=== PATIENT | female | born 1930 | race Caucasian/White ===

== ENCOUNTER 2017-05-25 13:43 | Inpatient (IN) | payer MEDICARE, OTHER ==
[~2017-05-25] VITALS: Ht 157.4 cm; Wt 67.1 kg
[~2017-05-25 13:43] MED LIST: ASPIRIN81 M1; B COMPLEX1 CAP; BACTRIM DS 8001 TA1 PO; BIOTIN1 MG; CALCIUM600 M2; DAILY VITAMIN; EPA1000 MG; FOSAMAX70 MG/75 M; IRON50 MG; LASIX40 MG; LEVOFLOXACIN500 MG PO; OCUVITE1 TA1; PYRIDIUM200 M1 PO; [UNRECOGNIZED DRUG - OTHER] PO
[2017-05-25 13:48] VITALS: BP 153/79
[2017-05-25 14:14] LABS: BASO % 0.5 % (0.0-1.0); EOS # 0.2 10*3/uL (0.0-0.4); EOS % 2.1 % (1.0-4.0); HEMATOCRIT 45.6 % (37.0-47.0); HEMOGLOBIN 14.9 g/dl (12.0-16.0); LYMPH # 1.8 10*3/uL (1.3-4.4); LYMPH % 23.7 % (27.0-41.0); MEAN CELL VOLUME 97.9 fl (81.0-99.0); MEAN CORPUSCULAR HGB CONC 32.7 g/dl (33.0-37.0); MEAN PLATELET VOLUME 10.5 fl (9.6-12.3); MONO # 0.7 10*3/uL (0.1-1.0); MONO % 9.3 % (3.0-9.0); NEUT # 4.9 10*3/uL (2.3-7.9); NEUT % 64.3 % (47.0-73.0); PLATELET COUNT AUTOMATED 141 10*3/uL (130-400); RED BLOOD COUNT 4.66 10*6/uL (4.10-5.10); RED CELL DISTRI WIDTH 12.9 % (0-14.5); WHITE BLOOD COUNT 7.6 10*3/uL (4.8-10.8)
[2017-05-25 14:28] LABS: ALBUMIN 3.5 gm/dl (3.1-4.5); ALKALINE PHOSPHATASE 81 U/L (45-117); BUN 21 mg/dl (7-24); CHLORIDE 110 mmol/L (98-107); CREATININE 0.77 mg/dL (0.55-1.02); LIPASE 128 U/L (73-393); POTASSIUM 3.9 mmol/L (3.5-5.1); SGOT/AST 28 IU/L (3-35); SGPT/ALT 19 U/L (12-78); SODIUM 143 mmol/L (136-145); TOTAL PROTEIN 7.5 gm/dL (6.4-8.2)
[2017-05-25 14:36] LABS: BILIRUBIN 1+ (NEGATIVE); BLOOD 3+ (NEGATIVE); CLARITY CLOUDY (CLEAR); COLOR YELLOW (YELLOW); GLUCOSE NEGATIVE (NEGATIVE); KETONE TRACE (NEGATIVE); LEUKO ESTERASE 2+ (NEGATIVE); NITRITE NEGATIVE (NEGATIVE); PH 8.5 (5.0-9.0); SPECIFIC GRAVITY 1.015 (1.005-1.030)
[2017-05-25 14:43] LABS: BACTERIA 2+; RBC TNTC rbc/hpf (0-2); WBC TNTC wbc/hpf (0-5)
[2017-05-25] MEDS ORDERED: LATANOPROST2.5 ML OP (14:47)
[2017-05-25 16:09] VITALS: BP 148/80
--- NOTE | 2017-05-25 16:44 | NUR ---
A 86, admitted to 5E, under the services of HERMILO Philip DO with a diagnosis of UTI, SEPSIS. Chief complaint is BLOOD IN URINE FOR 2 DAYS. URINARY FREQUENCY AND DIFFUSE LOW ABDOMEN PAIN FOR 3 WEEKS. Patient arrived via stretcher from ER. Monitor applied. Initial assessment completed. Vital signs taken and recorded. HERMILO PHILIP DO notified of admission to the unit. Orders received. See assessment for past medical history, medications and allergies. Patient and/or family oriented to unit. [facility] visitation policy reviewed. Clothing/patient valuable form completed. BOB HENSON
[2017-05-25 17:00] VITALS: BP 148/80
--- NOTE | 2017-05-25 17:00 | NUR ---
DURING ADMISSION, PT HAD TO USE RESTROOM TWICE. EACH TIME PRODUCED A SMALL AMOUNT OF URINE WITH MINIMAL BLOOD. NO CLOTS NOTED. PT STATES THE PYRIDIUM REALLY HELPED AND HAS BEEN "BURNING" LESS AND LESS.
--- NOTE | 2017-05-25 17:35 | NUR ---
NOTIFIED DR. BARILLAS OF NEEDED SIGNATURE FOR DNR-CCA PAPERWORK. WILL BE REVIEWED AND SIGN TOMORROW PER DR. BARILLAS.
--- NOTE | 2017-05-25 18:42 | NUR ---
PT IN BED, VISITING WITH FAMILY AND EATING. NO COMPLAINTS AT THIS TIME.
[2017-05-25 20:00] VITALS: BP 134/72
--- NOTE | 2017-05-25 20:30 | NUR ---
PT. ALERT AND ORIENTED X 3 AT THIS TIME, PT. IN BED WITH DAUGHTER AT BEDSIDE. LUNGS DIMINISHED, PT. DENIES SOB ON RA. S1S2, PPP, NO CP, EDEMA TO LE L>R.
--- NOTE | 2017-05-25 20:58 | NUR ---
@[address] NORWOOD REGARDING PTS. STATED EPISODES OF DIARRHEA. PER DR. NORWOOD, THIS NURSE IS TO ORDER A C-DIFF CULTURE FOR THE PT.
[2017-05-26] VITALS: BP 136/83
[2017-05-26 06:39] LABS: BASO % 0.5 % (0.0-1.0); EOS # 0.2 10*3/uL (0.0-0.4); EOS % 3.1 % (1.0-4.0); HEMATOCRIT 40.9 % (37.0-47.0); HEMOGLOBIN 13.2 g/dl (12.0-16.0); LYMPH # 1.2 10*3/uL (1.3-4.4); LYMPH % 20.8 % (27.0-41.0); MEAN CELL VOLUME 98.6 fl (81.0-99.0); MEAN CORPUSCULAR HGB 31.8 pg (27.0-31.0); MEAN CORPUSCULAR HGB CONC 32.3 g/dl (33.0-37.0); MEAN PLATELET VOLUME 10.8 fl (9.6-12.3); MONO # 0.6 10*3/uL (0.1-1.0); MONO % 10.8 % (3.0-9.0); NEUT # 3.6 10*3/uL (2.3-7.9); NEUT % 64.6 % (47.0-73.0); PLATELET COUNT AUTOMATED 118 10*3/uL (130-400); RED BLOOD COUNT 4.15 10*6/uL (4.10-5.10); RED CELL DISTRI WIDTH 12.9 % (0-14.5); WHITE BLOOD COUNT 5.6 10*3/uL (4.8-10.8)
[2017-05-26 07:11] LABS: ACT PARTIAL THROMBO TIME 22.3 SECONDS (20.8-31.5)
[2017-05-26 07:16] LABS: ALBUMIN 3.1 gm/dl (3.1-4.5); BUN 20 mg/dl (7-24); CHLORIDE 109 mmol/L (98-107); POTASSIUM 3.7 mmol/L (3.5-5.1); SGOT/AST 22 IU/L (3-35); SGPT/ALT 19 U/L (12-78); SODIUM 143 mmol/L (136-145)
[2017-05-26 07:25] LABS: ALKALINE PHOSPHATASE 68 U/L (45-117); CHOLESTEROL 157 mg/dL (<200); CREATININE 0.76 mg/dL (0.55-1.02); HDL CHOLESTEROL 51 mg/dl (40-60); LDL CHOLESTEROL 92 mg/dL (9-159); PHOSPHOROUS 2.7 mg/dL (2.5-4.9); TOTAL PROTEIN 6.8 gm/dL (6.4-8.2); TRIGLYCERIDES 70 mg/dl (<150); VLDL CHOLESTEROL 14 mg/dL (6-40)
[2017-05-26 07:39] LABS: VITAMIN D, 25-HYDROXY 33.2 ng/mL (30-100)
[2017-05-26 08:00] VITALS: BP 141/73
[2017-05-26] MEDS ORDERED: DOXYCYCLINE100 M3 PO (09:58)
--- NOTE | 2017-05-26 11:53 | NUR ---
Discharge instructions reviewed with patient/family. Patient receptive and verbalizes understanding. Follow-up care arranged. Written instructions given to patient/family. ESTEPHANIA PRICE
== END 2017-05-26 11:54 | disposition home or self-care (01) | DRG 872 ==
LOC: ED 13:43 → EDHOLD 15:42 → 5E 15:49
PROVIDERS: Family Medicine; Student in an Organized Health Care Education/Training Program; ADMIT Internal Medicine
DX: A41.9 Sepsis, unspecified organism (principal); E87.8 Other disorders of electrolyte and fluid balance, not elsewhere classified; N39.0 Urinary tract infection, site not specified; R31.9 Hematuria, unspecified; K31.89 Other diseases of stomach and duodenum; R73.9 Hyperglycemia, unspecified; K80.20 Calculus of gallbladder without cholecystitis without obstruction; K57.90 Diverticulosis of intestine, part unspecified, without perforation or abscess without bleeding; K44.9 Diaphragmatic hernia without obstruction or gangrene; Z51.5 Encounter for palliative care; Z66 Do not resuscitate; H40.9 Unspecified glaucoma; Z90.710 Acquired absence of both cervix and uterus; Z98.51 Tubal ligation status; Z80.0 Family history of malignant neoplasm of digestive organs; Z84.89 Family history of other specified conditions; Z91.041 Radiographic dye allergy status; Z91.048 Other nonmedicinal substance allergy status; Z88.8 Allergy status to other drugs, medicaments and biological substances; Z79.899 Other long term (current) drug therapy; Z79.82 Long term (current) use of aspirin

== ENCOUNTER 2018-07-12 15:23 | Emergency (ER) | payer MEDICARE, OTHER ==
[~2018-07-12] VITALS: Ht 157.4 cm; Wt 60.8 kg
[~2018-07-12 15:23] MED LIST changes: +DOXYCYCLINE100 M3 PO; +LATANOPROST2.5 ML OP
[2018-07-12 15:39] LABS: BILIRUBIN 2+ (NEGATIVE); BLOOD 2+ (NEGATIVE); CLARITY CLOUDY (CLEAR); GLUCOSE NEGATIVE (NEGATIVE); KETONE NEGATIVE (NEGATIVE); LEUKO ESTERASE 3+ (NEGATIVE); NITRITE NEGATIVE (NEGATIVE); PH 6.5 (5.0-9.0); UROBILINOGEN 0.2 E.U./dl (0.2-1.0)
[2018-07-12 15:43] LABS: COLOR GREEN (YELLOW)
[2018-07-12 15:46] LABS: BACTERIA 2+; EPITHELIAL CELLS E0-2; WBC TNTC wbc/hpf (0-5)
[2018-07-12 15:47] LABS: MUCOUS TRACE
[2018-07-12] MEDS ORDERED: LEVOFLOXACIN250 M2 PO (18:54)
== END 2018-07-12 19:15 | disposition home or self-care (01) ==
LOC: ED 15:23
PROVIDERS: Emergency Medicine
DX: R60.0 Localized edema (principal); N39.0 Urinary tract infection, site not specified; Z86.711 Personal history of pulmonary embolism; Z91.041 Radiographic dye allergy status; Z91.048 Other nonmedicinal substance allergy status; Z88.1 Allergy status to other antibiotic agents; Z88.8 Allergy status to other drugs, medicaments and biological substances; Z79.2 Long term (current) use of antibiotics; Z79.899 Other long term (current) drug therapy; Z90.710 Acquired absence of both cervix and uterus

== ENCOUNTER 2018-07-18 15:44 | Emergency (ER) | payer MEDICARE, OTHER ==
[~2018-07-18] VITALS: Wt 63.5 kg
[~2018-07-18 15:44] MED LIST changes: +LEVOFLOXACIN250 M2 PO
[2018-07-18 15:45] VITALS: BP 137/72
[2018-07-18 16:49] LABS: BASO % 0.6 % (0.0-1.0); EOS # 0.2 10*3/uL (0.0-0.4); EOS % 4.8 % (1.0-4.0); HEMATOCRIT 41.7 % (37.0-47.0); HEMOGLOBIN 13.4 g/dl (12.0-16.0); LYMPH # 1.2 10*3/uL (1.3-4.4); LYMPH % 25.3 % (27.0-41.0); MEAN CELL VOLUME 99.8 fl (81.0-99.0); MEAN CORPUSCULAR HGB 32.1 pg (27.0-31.0); MEAN CORPUSCULAR HGB CONC 32.1 g/dl (33.0-37.0); MEAN PLATELET VOLUME 10.1 fl (9.6-12.3); MONO # 0.6 10*3/uL (0.1-1.0); MONO % 12.7 % (3.0-9.0); NEUT # 2.7 10*3/uL (2.3-7.9); NEUT % 56.4 % (47.0-73.0); PLATELET COUNT AUTOMATED 150 10*3/uL (130-400); RED BLOOD COUNT 4.18 10*6/uL (4.10-5.10); RED CELL DISTRI WIDTH 13.2 % (0-14.5); WHITE BLOOD COUNT 4.8 10*3/uL (4.8-10.8)
[2018-07-18 17:04] LABS: ALBUMIN 3.1 gm/dl (3.1-4.5); ALKALINE PHOSPHATASE 91 U/L (45-117); BUN 13 mg/dl (7-24); CHLORIDE 104 mmol/L (98-107); CREATININE 1.01 mg/dL (0.55-1.02); POTASSIUM 3.9 mmol/L (3.5-5.1); SGOT/AST 27 IU/L (3-35); SGPT/ALT 20 U/L (12-78); SODIUM 140 mmol/L (136-145); TOTAL PROTEIN 7.2 gm/dL (6.4-8.2)
[2018-07-18] MEDS ORDERED: CEPHALEXIN500 M1 PO (19:09)
[2018-07-18] MEDS ORDERED: PYRIDIUM100 MG PO (19:09)
== END 2018-07-18 19:19 | disposition home or self-care (01) ==
LOC: ED 15:44
PROVIDERS: Nurse Practitioner Family
DX: L03.116 Cellulitis of left lower limb (principal); Z86.711 Personal history of pulmonary embolism; Z91.041 Radiographic dye allergy status; Z91.048 Other nonmedicinal substance allergy status; Z88.1 Allergy status to other antibiotic agents; Z88.8 Allergy status to other drugs, medicaments and biological substances; Z79.2 Long term (current) use of antibiotics; Z79.899 Other long term (current) drug therapy; Z90.710 Acquired absence of both cervix and uterus

== ENCOUNTER 2018-08-30 11:19 | Inpatient (IN) | payer MEDICARE, OTHER ==
[~2018-08-30] VITALS: Ht 154.9 cm; Wt 57.7 kg
--- NOTE | ~2018-08-30 | EKG ---
[place], [place] ELECTROCARDIOGRAM REPORT NAME: SAVI MONTES UNIT #: [id number] ROOM: 512 DOCTOR: TYRONE DRAFT REPORT BIRTHDATE: [birth year] [facility] Test Date: 2018-08-30 Test Time: 15:57:32 Pat Name: SAVI MONTES Department: Room: 512 1 Gender: F Citrus Picker: EKG.ND : 1930 Requested By: CONCEPCION ARAIZA Order Number: [id number] Reading MD: Higinio Montana MD Measurements Intervals [place] Rate: 54 P: 36 MT: 146 QRS: 27 QRSD: 82 T: 59 QT: 424 QTc: 402 Interpretive Statements Sinus rhythm Electronically Signed On 09-03-2018 15:35:53 PST by Higinio Montana MD CM:EKGRPT:ELECTROCARDIOGRAM REPORT [id number] CONCEPCION HANSEN DRAFT REPORT CONCEPCION ARAIZA
[~2018-08-30 11:19] MED LIST changes: +CEPHALEXIN500 M1 PO; -LATANOPROST2.5 ML OP; +LATANOPROST2.5 ML OU; +PYRIDIUM100 MG PO
[2018-08-30 11:24] VITALS: BP 147/80
[2018-08-30 12:18] LABS: BASO # 0.1 10*3/uL (0.0-0.1); BASO % 0.8 % (0.0-1.0); EOS # 0.3 10*3/uL (0.0-0.4); EOS % 3.6 % (1.0-4.0); HEMATOCRIT 43.9 % (37.0-47.0); HEMOGLOBIN 14.5 g/dl (12.0-16.0); LYMPH % 13.8 % (27.0-41.0); MEAN CELL VOLUME 97.1 fl (81.0-99.0); MEAN CORPUSCULAR HGB 32.1 pg (27.0-31.0); MEAN PLATELET VOLUME 10.7 fl (9.6-12.3); MONO # 0.6 10*3/uL (0.1-1.0); MONO % 7.8 % (3.0-9.0); NEUT # 5.6 10*3/uL (2.3-7.9); NEUT % 73.7 % (47.0-73.0); PLATELET COUNT AUTOMATED 175 10*3/uL (130-400); RED BLOOD COUNT 4.52 10*6/uL (4.10-5.10); RED CELL DISTRI WIDTH 13.2 % (0-14.5); WHITE BLOOD COUNT 7.5 10*3/uL (4.8-10.8)
[2018-08-30 12:33] LABS: ALBUMIN 3.1 gm/dl (3.1-4.5); ALKALINE PHOSPHATASE 81 U/L (45-117); BUN 17 mg/dl (7-24); CHLORIDE 107 mmol/L (98-107); CREATININE 0.73 mg/dL (0.55-1.02); POTASSIUM 3.8 mmol/L (3.5-5.1); SGOT/AST 14 IU/L (3-35); SGPT/ALT 13 U/L (12-78); SODIUM 138 mmol/L (136-145); TOTAL PROTEIN 7.5 gm/dL (6.4-8.2)
[2018-08-30 12:58] LABS: BILIRUBIN NEGATIVE (NEGATIVE); BLOOD 2+ (NEGATIVE); CLARITY CLOUDY (CLEAR); COLOR YELLOW (YELLOW); GLUCOSE NEGATIVE (NEGATIVE); KETONE TRACE (NEGATIVE); LEUKO ESTERASE 3+ (NEGATIVE); NITRITE NEGATIVE (NEGATIVE); SPECIFIC GRAVITY 1.015 (1.005-1.030)
[2018-08-30 13:05] LABS: BACTERIA 3+; RBC 31-40 rbc/hpf (0-2); WBC TNTC wbc/hpf (0-5)
--- NOTE | 2018-08-30 13:31 | NUR ---
pt without "much relief" from the meds,family @ bedside,call light within reach and safety precautions intact.
[2018-08-30 13:42] VITALS: BP 138/80
[2018-08-30] MEDS ORDERED: DITROPAN XL5 MG PO (13:52)
[2018-08-30 14:21] VITALS: BP 132/58
--- NOTE | 2018-08-30 14:24 | NUR ---
NANO FIGUEROA NOTIFIED THAT PT/FAMILY REQUESTING A PRIVATE ROOM AND BED NUMBER TO BE CHANGED PRIOR TO ADMISSION.
[2018-08-30 15:05] VITALS: BP 160/58
--- NOTE | 2018-08-30 15:05 | NUR ---
Time: 1504 A 87 year old FEMALE admitted to 5E under services of NOMAN WINTER DO. Pt. arrived via bed from ER. Chief complaint: BACK PAIN. NANO MATHEWS
--- NOTE | 2018-08-30 15:50 | NUR ---
/ IN TO SEE PATIENT AT BEDSIDE. INFORMED THAT MEDICATIONS ARE VERIFIED BY PATIENT/FAMILY.
[2018-08-30 16:00] VITALS: BP 132/58
--- NOTE | 2018-08-30 16:34 | NUR ---
TRANSPORT TO P/U PATIENT FOR CT SCAN.
--- NOTE | 2018-08-30 17:00 | NUR ---
PER OK TO HOLD 1800 DOSE OF IV LASIX D/T PATIENT ALREADY HAVING 1X DOSE THIS EVENING.
--- NOTE | 2018-08-30 17:09 | NUR ---
PATIENT MEDICATED WITH IV MORPHINE FOR 10/10 PAINT TO BACK. WILL MONITOR.
--- NOTE | 2018-08-30 17:56 | NUR ---
INFORMED THAT MORPHINE IV HAS NOT BEEN EFFECTIVE FOR BACK PAIN AND PATIENT HAS INCREASE PAIN TO LLQ REGION WITH TENDERNESS TO TOUCH. STATES HE WILL COME UP AND SEE.
--- NOTE | 2018-08-30 18:36 | NUR ---
PATIENT MEDICATED WITH NORCO FOR C/O ABDOMINAL PAIN 04/23. WILL MONITOR
[2018-08-30 20:00] VITALS: BP 115/60
[2018-08-31] VITALS (8 sets, daily range): BP systolic 93–128; BP diastolic 38–66
[2018-08-31 06:06] LABS: BASO # 0.1 10*3/uL (0.0-0.1); BASO % 0.7 % (0.0-1.0); EOS # 0.4 10*3/uL (0.0-0.4); EOS % 5.5 % (1.0-4.0); HEMATOCRIT 39.7 % (37.0-47.0); LYMPH # 0.9 10*3/uL (1.3-4.4); LYMPH % 13.4 % (27.0-41.0); MEAN CELL VOLUME 98.8 fl (81.0-99.0); MEAN CORPUSCULAR HGB 30.8 pg (27.0-31.0); MEAN CORPUSCULAR HGB CONC 31.2 g/dl (33.0-37.0); MEAN PLATELET VOLUME 10.7 fl (9.6-12.3); MONO # 0.9 10*3/uL (0.1-1.0); MONO % 12.5 % (3.0-9.0); NEUT # 4.7 10*3/uL (2.3-7.9); NEUT % 67.6 % (47.0-73.0); PLATELET COUNT AUTOMATED 149 10*3/uL (130-400); RED BLOOD COUNT 4.02 10*6/uL (4.10-5.10); RED CELL DISTRI WIDTH 13.1 % (0-14.5)
[2018-08-31 06:15] LABS: HEMOGLOBIN 12.4 g/dl (12.0-16.0)
[2018-08-31 06:25] LABS: ALBUMIN 2.5 gm/dl (3.1-4.5); ALKALINE PHOSPHATASE 66 U/L (45-117); BUN 16 mg/dl (7-24); CHLORIDE 103 mmol/L (98-107); CHOLESTEROL 129 mg/dL (<200); CREATININE 0.78 mg/dL (0.55-1.02); PHOSPHOROUS 3.3 mg/dL (2.5-4.9); POTASSIUM 3.6 mmol/L (3.5-5.1); SGOT/AST 16 IU/L (3-35); SGPT/ALT 10 U/L (12-78); SODIUM 140 mmol/L (136-145)
[2018-08-31 06:27] LABS: INTERNATIONAL NORM RATIO 1.1 (2.0-3.5)
[2018-08-31 06:31] LABS: HDL CHOLESTEROL 35 mg/dl (40-60); LDL CHOLESTEROL 77 mg/dL (9-159); TRIGLYCERIDES 85 mg/dl (<150); VLDL CHOLESTEROL 17 mg/dL (6-40)
--- NOTE | 2018-08-31 07:10 | NUR ---
BEDSIDE REPORT OBTAINED FROM TYRESE-RN. PATIENT IS AWAKE AND ALERT, STATE "I FEEL BETTER TODAY THAN I DID YESTERDAY. PT HAS NO C/O PAIN, VOICED NO COMPLAINTS OTHER THAN STILL HAVING ABDOMINAL TENDERNESS TO PALPATION. NO DISTRES NOTED, RESP ARE ERND ON ROOM AIR. BED IS LOCKED IN LOWEST POSITON, ALARM MAINTAINED. CALL LIGHT LEFT WITHIN REACH.
--- NOTE | 2018-08-31 09:36 | NUR ---
PATIENT MEDICATED WITH NORCO FOR BACK PAIN 02/21. WILL MONITOR
--- NOTE | 2018-08-31 10:36 | NUR ---
NORCO APPEARS TO BE EFFECTIVE. PATIENT RESTING IN BED, EYES CLOSED. NO DISTRESS NOTED. CALL LIGHT LEFT WITHIN REACH.
--- NOTE | 2018-08-31 12:49 | NUR ---
PT REQUESTED IV MORPHINE SLOWLY PER PRN ORDER FOR C/O BACK PAIN. RATES PAIN 9/10. FAMILY AT BEDSIDE. WILL MONITOR EFFECTIVENESS.
--- NOTE | 2018-08-31 17:10 | NUR ---
Hep Lock discontinued TO JEEVAN. Site symptomatic. Pressure applied. Sterile dressing applied. NANO MATHEWS
--- NOTE | 2018-08-31 17:10 | NUR ---
IV started left wrist with #22 angiocath after 0 attempts. The IV site was prepped with Chloraprep. Heparin lock attached. Sterile dressing applied. Patient tolerated precedure well. Procedure performed according to [facility] policy & procedure. NANO MATHEWS
--- NOTE | 2018-08-31 17:20 | NUR ---
PATIENT MEDICATED WITH NORCO FOR C/O BACK PAIN 01/21. WILL MONITOR
--- NOTE | 2018-08-31 18:20 | NUR ---
NORCO EFFECTIVE FOR BACK PAIN.
[2018-09-01] VITALS: BP 107/62
[2018-09-01 06:49] LABS: BASO % 0.6 % (0.0-1.0); EOS # 0.5 10*3/uL (0.0-0.4); EOS % 7.9 % (1.0-4.0); HEMATOCRIT 41.1 % (37.0-47.0); HEMOGLOBIN 13.1 g/dl (12.0-16.0); LYMPH # 1.6 10*3/uL (1.3-4.4); LYMPH % 25.6 % (27.0-41.0); MEAN CELL VOLUME 98.1 fl (81.0-99.0); MEAN CORPUSCULAR HGB 31.3 pg (27.0-31.0); MEAN CORPUSCULAR HGB CONC 31.9 g/dl (33.0-37.0); MEAN PLATELET VOLUME 10.7 fl (9.6-12.3); MONO # 0.7 10*3/uL (0.1-1.0); MONO % 11.8 % (3.0-9.0); NEUT # 3.4 10*3/uL (2.3-7.9); NEUT % 53.9 % (47.0-73.0); PLATELET COUNT AUTOMATED 157 10*3/uL (130-400); RED BLOOD COUNT 4.19 10*6/uL (4.10-5.10); RED CELL DISTRI WIDTH 13.4 % (0-14.5); WHITE BLOOD COUNT 6.3 10*3/uL (4.8-10.8)
[2018-09-01 06:56] LABS: BUN 18 mg/dl (7-24); CHLORIDE 103 mmol/L (98-107); CREATININE 0.83 mg/dL (0.55-1.02); POTASSIUM 3.2 mmol/L (3.5-5.1); SODIUM 140 mmol/L (136-145)
[2018-09-01 08:00] VITALS: BP 132/46
--- NOTE | 2018-09-01 11:22 | NUR ---
Corporate Ethics Officer in to talk to patient. Patient states lives at HOME with ALONE, DAUGHTER LIVES NEXT DOOR. There are NO steps in the home. Physician: VINCENT OQUENDO Pharmacy: [facility] Home health services: NONE Patient's level of ADLs: MINIMAL ASSIST Patient has working utilities: YES DME: NONE Follow-up physician's appointment after d/c: WILL BE MADE BY HOSPITALIST NURSE DIRECTOR ON DISCHARGED Does patient want to access PORTAL?: NO Discharge plan PT STATES SHE LIVES ALONE WITH DAUGHTER LIVING NEXT DOOR. STATES SHE IS MOSTLY INDEPENDENT IN CARE. STATES SHE IS NOT SURE IF SHE WANTS ANY HOME HEALTH OR SKILLED PLACEMENT AT THIS TIME. STATES HER DAUGHTER WILL BE IN TODAY AND THEY WILL TALK. WILL CONTINUE TO FOLLOW. STATES HER DAUGHTER WILL TAKE HER HOME ON DISCHARGE.. ROMEO LANDAVERDE
[2018-09-01 12:00] VITALS: BP 115/46
--- NOTE | 2018-09-01 12:12 | NUR ---
PATIENT MEDICATED WITH NORCO FOR C/O BACK PAIN. WILL MONITOR
--- NOTE | 2018-09-01 12:41 | NUR ---
BACK TO ROOM WITH DAUGHTER PRESENT AT THIS TIME. DAUGHTER AGREEING THAT PT NEEDS REHAB. LIST GIVEN AND THEY CHOSE REHAB SUITES FIRST AND [facility]. INTERIOR DESIGN ASSISTANT INFORMED.
--- NOTE | 2018-09-01 13:00 | NUR ---
PHYSICAL THERAPY PAtient evaluated on 5, full evaluation to follow. Continue with PT as per plan of care with fall, vertebral fx L1 ( awaiting possbile vertebraplasty) and alarm precautions. Will require SNF. PAtient is moderate complexity via chart review, tests and evaluation: 48535. Thank you for this referral. Anabella Feliciano,PT
--- NOTE | 2018-09-01 13:03 | NUR ---
Occupational Therapy evaluation completed on 5 with full eval to follow. Precautions include fall risk, L1 compression fx,new ww use,moderate complexity level 49846 via chart review, testing and evaluation. Recommend OT per POC and SNF upon d/c to enable return home alone. THank you for this referral. Adelina Carlos Otr/L
--- NOTE | 2018-09-01 13:12 | NUR ---
NORCO EFFECTIVE FOR BACK PAIN.
--- NOTE | 2018-09-01 14:06 | NUR ---
Patients insurance is out of network with [facility]. In network are [facility] and [place].
--- NOTE | 2018-09-01 15:09 | NUR ---
Patient referral faxed to [facility], [facility] and [facility] are full at this time. Patient requires a 3 night stay. Waiting on review/acceptance.
[2018-09-01 16:00] VITALS: BP 104/41
--- NOTE | 2018-09-01 16:09 | NUR ---
PATIENT MEDICATED WITH NORCO FOR C/O BACK PAIN 02/21. WILL MONITOR.
--- NOTE | 2018-09-01 16:32 | NUR ---
INFORMED THAT PATIENT/FAMILY ARE REQUESTING MRI OF BACK TO FIND IF FX IS NEW OR OLD BECAUSE THEY ARE WANTING TO SEE A SPECIALIST FOR POSSIBLE SURGERY. STATES HE WILL DISCUSS IT WITH
--- NOTE | 2018-09-01 17:09 | NUR ---
NORCO INEFFECTIVE. PATIENT MEDICATED WITH MORPHINE IV FOR 8/10 BACK PAIN. WILL MONITOR
--- NOTE | 2018-09-01 18:09 | NUR ---
MORPHINE EFFECTIVE FOR BACK PAIN.
--- NOTE | 2018-09-01 19:45 | NUR ---
REPORT OBTAINED BY DAY SHIFT RN. INITIAL ASSESSMENT COMPLETED. PT IS SITTING UP IN BED AT THIS TIME WITH FAMILY AT THE BEDSIDE. THE PATIENT VOICES NO COMPLAINTS AT THIS TIME. SHE STATES THE MEDICATION SHE IS RECIEVING FOR HER BACK PAIN HAS BEEN CONTROLLING IT WELL. RESPIRATIONS ARE EASY AND NONLABORED ON ROOM AIR. BED IS LOCKED AND IN THE LOWEST POSITION. WILL CONTINUE TO MONITOR PT.
[2018-09-01 20:00] VITALS: BP 114/64
[2018-09-02] VITALS: BP 103/41
[2018-09-02 00:56] VITALS: BP 110/58
--- NOTE | 2018-09-02 05:32 | NUR ---
PT REQUESTED AND RECIEVED PRN ORDER FOR NORCO FOR C/O BACK PAIN. WILL MONITOR EFFECTIVENESS OF MEDICATION
--- NOTE | 2018-09-02 06:47 | NUR ---
NORCO EFFECTIVE PER PT
[2018-09-02 08:00] VITALS: BP 138/64
[2018-09-02] MEDS ORDERED: LASIX20 MG PO (11:00)
[2018-09-02] MEDS ORDERED: HYDROCODONE-AC1 EAC1 PO (11:00)
--- NOTE | 2018-09-02 11:07 | NUR ---
PT DAUGHTER IN ROOM AND INFORMED THAT PT WAS ACCEPTED TO [facility] AND CAN GO WHEN MEDICALLY STABLE.
--- NOTE | 2018-09-02 11:35 | NUR ---
OT NOTE Pt was seen this A.M. 1:1 for 20 minute OT session. Upon arrival pt was supine in bed, pt identified by name and and had no complaints at this time. Pt transferred supine to sit EOB with SBA. Sit to stand transfer completed from bed level with Marcial and use of w/w for UE support. Challenged pt's dynamic standing tolerance and pt was able to tolerate aprox 3 minutes at a time before sitting due to fatigue. Pt then completed functional mobility into the bathroom with CGA and use of w/w for UE support. Pt required constant verbal prompts for upright posture, staying close to the walker, and safe turning due to lifting all four points off the ground to turn. Pt transferred on/off standard commode with CGA and use of grab bar. Clothing management completed with CGA and toilet hygiene completed with supervision while sitting. Pt then stood sink side while washing her hands with CGA. Pt had poor carry over throughout with turning and safety with the walker. Pt transferred back into bed sit to supine with SBA. There she was left with call light in hand, tray table in place, and bed alarm activated for safety. Continue with rec D/C plan to SNF. YAW Ortiz/Ceci
--- NOTE | 2018-09-02 11:48 | NUR ---
PHYSICAL THERAPY Patient presented to therapy in supine position with head of bed elevated and two daughters visiting in room with patient. Patient reports minimal pain level today , due to having her patient meds earlier. Patient was identified by name and . Patient agrees to therapy session. Patient performed supine to sitting at EOB transfer with MIN A X 1. Patient transferred STS with MIN A X 2. Patient ambulated with W/W and CGA X 2 for 40' X 1 with verbal cues for staying within REYNA of walker and upright posture. Patient then transferred to SITTING at EOB with CGA X 2. Patient transferred STS again, after a short rest period, with MIN A X 2. Patient ambulated with W/W and CGA X 2 for 50' x 1 with verbal cues for staying within REYNA of walker, especially with turning. Patient transferred back to supine in bed with MIN A X 1. Patient was left in supine position with head of bed elevated, call light within reach, bed alarm activated ,and two duaughters visiting in room. Patient was 1:1 with this PIPE LINE MAINTENANCE SUPERVISOR for 20 minutes total. JENISE OSEGUERA PIPE LINE MAINTENANCE SUPERVISOR
--- NOTE | 2018-09-02 11:56 | NUR ---
Patient is accepted to [facility], 3 night stay complete, Pass/rr complete, ok to go if medically stable for discharge. Patient is discharged to [facility], daughter stating she will transport her around 1:30. NH, racetrack steward, nursing notified.
--- NOTE | 2018-09-02 12:40 | NUR ---
Discharge instructions reviewed with patient/family. Patient receptive and verbalizes understanding. Follow-up care arranged. Written instructions given to patient/family. PATIENT TAKEN BY CAR TO [facility], TRANSPORTED BY DAUGHTER. ALEXANDR DOMINGO. AZALEA LEONARDO
--- NOTE | 2018-09-02 12:55 | NUR ---
REPORT GIVEN TO DAVID FROM [facility].
--- NOTE | 2018-09-02 14:46 | NUR ---
PHYSICAL THERAPY CO-SIGN I approve of the Phyical Therapy notes written above. PAO WALDEN PT
[2018-10-23] MEDS ORDERED: CALCIUM + D3 E1 EACH PO (19:49)
[2018-10-24] MEDS ORDERED: LASIX20 MG PO (12:41)
[2018-10-24] MEDS ORDERED: K-TAB10 MEQ PO (12:42)
== END 2018-09-02 12:40 | disposition other institution (70) | DRG 551 ==
LOC: ED 11:19 → 5E 13:59 → EDHOLD 13:59 → 5E 14:18
PROVIDERS: Internal Medicine; Student in an Organized Health Care Education/Training Program; ADMIT Internal Medicine
DX: S32.010A Wedge compression fracture of first lumbar vertebra, initial encounter for closed fracture (principal); G93.41 Metabolic encephalopathy; N39.0 Urinary tract infection, site not specified; M80.00XA Age-related osteoporosis with current pathological fracture, unspecified site, initial encounter for fracture; I50.30 Unspecified diastolic (congestive) heart failure; R31.9 Hematuria, unspecified; R26.2 Difficulty in walking, not elsewhere classified; E66.3 Overweight; R60.9 Edema, unspecified; K44.9 Diaphragmatic hernia without obstruction or gangrene; N32.81 Overactive bladder; R73.9 Hyperglycemia, unspecified; Z91.041 Radiographic dye allergy status; Z91.09 Other allergy status, other than to drugs and biological substances; K57.90 Diverticulosis of intestine, part unspecified, without perforation or abscess without bleeding; H40.9 Unspecified glaucoma; Z90.710 Acquired absence of both cervix and uterus; Z98.51 Tubal ligation status; Z80.8 Family history of malignant neoplasm of other organs or systems; Z79.82 Long term (current) use of aspirin; X58.XXXA Exposure to other specified factors, initial encounter; Y93.89 Activity, other specified; Y92.89 Other specified places as the place of occurrence of the external cause; Y99.8 Other external cause status; Z68.24 Body mass index [BMI] 24.0-24.9, adult

== ENCOUNTER → 2018-10-14 | Outpatient (CLI) | payer MEDICARE, OTHER ==
[~2018-10-14] MED LIST changes: +CALCIUM + D3 E1 EACH PO; +CYPROHEPTADINE H4 M1 PO; +DITROPAN XL5 MG PO; +HYDROCODONE-AC1 EAC1 PO; +K-TAB10 MEQ PO; +LASIX20 MG PO; +Vitamin D PO
== END | disposition home or self-care (01) ==
LOC: US 06:22
DX: N20.0 Calculus of kidney (principal); J44.9 Chronic obstructive pulmonary disease, unspecified

== ENCOUNTER 2018-11-04 16:08 | Inpatient (IN) | payer MEDICARE, OTHER ==
[~2018-11-04] VITALS: Ht 154.9 cm
[~2018-11-04 16:08] MED LIST changes: -CYPROHEPTADINE H4 M1 PO; -Vitamin D PO
[2018-11-04 16:18] VITALS: BP 134/70
[2018-11-04 16:43] LABS: BILIRUBIN NEGATIVE (NEGATIVE); BLOOD 2+ (NEGATIVE); CLARITY TURBID (CLEAR); COLOR YELLOW (YELLOW); GLUCOSE NEGATIVE (NEGATIVE); KETONE NEGATIVE (NEGATIVE); LEUKO ESTERASE 2+ (NEGATIVE); NITRITE NEGATIVE (NEGATIVE); SPECIFIC GRAVITY 1.025 (1.005-1.030); UROBILINOGEN 0.2 E.U./dl (0.2-1.0)
[2018-11-04 16:52] LABS: WBC TNTC wbc/hpf (0-5)
[2018-11-04 17:19] LABS: BASO % 0.7 % (0.0-1.0); EOS # 0.4 10*3/uL (0.0-0.4); EOS % 7.5 % (1.0-4.0); HEMATOCRIT 39.2 % (37.0-47.0); HEMOGLOBIN 12.5 g/dl (12.0-16.0); LYMPH # 1.4 10*3/uL (1.3-4.4); LYMPH % 23.1 % (27.0-41.0); MEAN CORPUSCULAR HGB 32.2 pg (27.0-31.0); MEAN CORPUSCULAR HGB CONC 31.9 g/dl (33.0-37.0); MEAN PLATELET VOLUME 10.5 fl (9.6-12.3); MONO # 0.7 10*3/uL (0.1-1.0); MONO % 12.2 % (3.0-9.0); NEUT # 3.3 10*3/uL (2.3-7.9); NEUT % 56.2 % (47.0-73.0); PLATELET COUNT AUTOMATED 155 10*3/uL (130-400); RED BLOOD COUNT 3.88 10*6/uL (4.10-5.10); RED CELL DISTRI WIDTH 14.9 % (0-14.5); WHITE BLOOD COUNT 5.9 10*3/uL (4.8-10.8)
[2018-11-04 17:33] LABS: ALBUMIN 2.6 gm/dl (3.1-4.5); ALKALINE PHOSPHATASE 68 U/L (45-117); BUN 22 mg/dl (7-24); CHLORIDE 109 mmol/L (98-107); CREATININE 0.76 mg/dL (0.55-1.02); POTASSIUM 4.3 mmol/L (3.5-5.1); SGOT/AST 21 IU/L (3-35); SGPT/ALT 12 U/L (12-78); SODIUM 140 mmol/L (136-145); TOTAL PROTEIN 6.9 gm/dL (6.4-8.2)
--- NOTE | 2018-11-04 18:40 | NUR ---
Time: 1839 A 87 year old FEMALE admitted to 5E under services of HERMILO CONNOLLY DO. Pt. arrived via ambulatory from ER. Chief complaint: WEAKNESS. BUTCH MELTON
[2018-11-04] MEDS ORDERED: CYPROHEPTADINE H4 M1 PO (18:44)
[2018-11-04 20:00] VITALS: BP 142/65
[2018-11-05] VITALS: BP 122/54
[2018-11-05 06:02] LABS: BASO # 0.1 10*3/uL (0.0-0.1); BASO % 0.9 % (0.0-1.0); EOS # 0.5 10*3/uL (0.0-0.4); EOS % 7.8 % (1.0-4.0); HEMATOCRIT 35.8 % (37.0-47.0); HEMOGLOBIN 11.2 g/dl (12.0-16.0); LYMPH # 1.1 10*3/uL (1.3-4.4); LYMPH % 18.1 % (27.0-41.0); MEAN CELL VOLUME 100.6 fl (81.0-99.0); MEAN CORPUSCULAR HGB 31.5 pg (27.0-31.0); MEAN CORPUSCULAR HGB CONC 31.3 g/dl (33.0-37.0); MONO # 0.6 10*3/uL (0.1-1.0); MONO % 10.9 % (3.0-9.0); NEUT # 3.6 10*3/uL (2.3-7.9); PLATELET COUNT AUTOMATED 126 10*3/uL (130-400); RED BLOOD COUNT 3.56 10*6/uL (4.10-5.10); RED CELL DISTRI WIDTH 14.5 % (0-14.5); WHITE BLOOD COUNT 5.9 10*3/uL (4.8-10.8)
[2018-11-05 06:15] LABS: INTERNATIONAL NORM RATIO 1.1 (2.0-3.5)
[2018-11-05 06:28] LABS: ALBUMIN 2.4 gm/dl (3.1-4.5); BUN 19 mg/dl (7-24); CHLORIDE 111 mmol/L (98-107); POTASSIUM 3.7 mmol/L (3.5-5.1); SODIUM 143 mmol/L (136-145)
[2018-11-05 06:40] LABS: ALKALINE PHOSPHATASE 63 U/L (45-117); CREATININE 0.69 mg/dL (0.55-1.02); PHOSPHOROUS 2.4 mg/dL (2.5-4.9); SGOT/AST 18 IU/L (3-35); SGPT/ALT 12 U/L (12-78); TOTAL PROTEIN 5.9 gm/dL (6.4-8.2)
[2018-11-05 07:57] LABS: VITAMIN D, 25-HYDROXY 49.2 ng/mL (30-100)
[2018-11-05 08:00] VITALS: BP 129/47
--- NOTE | 2018-11-05 09:10 | NUR ---
Occupational Therapy evaluation completed on 5 with full eval to follow. Precautions include fall risk; bed, chair alarm,impaired cognition, severe kyphotic posture, moderate complexity level 99942 via chart review, testing and evaluation. Recommend OT per pOC and SNF to enable max ability to function. Thank you for this referral. Adelina Carlos OTR/l
--- NOTE | 2018-11-05 09:24 | NUR ---
PHYSICAL THERAPY Patient evaluated on 5, full evaluation to follow. Continue with PT as per plan of care with fall, ALARM, decreased safety awareness and acute debility precautions. Will require SNF. PAtient is moderate complexity via chart review, tests and evaluation: 23271. Thank you for this referral. Anabella Feliciano,PT
[2018-11-05 12:00] VITALS: BP 107/51
--- NOTE | 2018-11-05 13:04 | NUR ---
PHYSICAL THERAPY checked on patient this afternoon. pt had 2 family members at bedside. pt stated she did not want to get up and could not participate in PT services at this time. Family mambers stated she is more of a morning person. Will check back tomorrow. JENISE OSEGUERA HANDLE AND VENT MACHINE OPERATOR
--- NOTE | 2018-11-05 13:09 | NUR ---
patient and family requesting a referral to [facility] for short term skilled. Contacted facility and faxed referral. They have a bed available, patient requires a 3 night stay.
--- NOTE | 2018-11-05 13:12 | NUR ---
Nursing screen received. Occupational Therapy referral received. Occupational Therapy evaluation completed. Thank you. Adelina Carlos OTR/l
--- NOTE | 2018-11-05 15:21 | NUR ---
DR SHANKAR INFORMED OF PT'S DAUGHTER BEING CONCERNED ABOUT HOME MEDS NOT BEING REORDERED, ALSO PT IS LISTED FULL CODE-BUT PT WISHES TO BE DNR-CC.
[2018-11-05 16:00] VITALS: BP 121/48
[2018-11-05 19:51] VITALS: BP 107/37
--- NOTE | 2018-11-05 21:40 | NUR ---
PT. GIVEN RESTORIL ORDERED FOR INABILITY TO SLEEP. GIVEN AT 2936
--- NOTE | 2018-11-05 21:46 | NUR ---
PT. SLEEPING, RESTORIL EFFECTIVE.
[2018-11-06] VITALS: BP 108/45
[2018-11-06 06:48] LABS: CHLORIDE 112 mmol/L (98-107); POTASSIUM 4.1 mmol/L (3.5-5.1); SODIUM 143 mmol/L (136-145)
[2018-11-06 06:57] LABS: BUN 16 mg/dl (7-24); CREATININE 0.74 mg/dL (0.55-1.02); PHOSPHOROUS 2.5 mg/dL (2.5-4.9)
[2018-11-06 08:00] VITALS: BP 104/44
--- NOTE | 2018-11-06 10:50 | NUR ---
patient accepted to [facility]; requires 3 night stay. Can go tomorrow Saturday11/07/18 if medically stable for discharge.
--- NOTE | 2018-11-06 11:16 | NUR ---
OT NOTE Attempted to see pt this A.M. for OT session and upon arrival pt was supine in bed. Pt was requesting to come back at a later time due to just finishing with PT and wanting to rest. Will check back at a later time/date. YAW Ortiz/Ceci
--- NOTE | 2018-11-06 11:26 | NUR ---
PHYSICAL THERAPY informed consent given, pt identified by name and . pt presented supine in bed with family at bedside. supine to sit SBA. STS and stand to sit x2 trials Marcial v/c safe hand placement to avoid injury. Static standing balance 1min B UE supported by AD, then another 1min hand held Assist Marcial. Walked 40ft wh walker CGA, during walk pt had difficulty staying inside the REYNA of wh walker and would flex trunk, v/c to stay inside REYNA and to keep tunk erect. Sit to supine modA, bed mobility maxAx2. Ended treatment pt supine in bed, call light and belongings in reach family at bedside. 1:1 treatment with FABRICATION ENGINEER 15min JENISE OSEGUERA PTA
[2018-11-06 12:00] VITALS: BP 100/42
--- NOTE | 2018-11-06 13:09 | NUR ---
OT NOTE Attempted to see pt this P.M. for OT session and upon arrival pt was supine in bed asleep with daughters at bedside. Family requested to let pt sleep at this time due to increased fatigue and blood pressure being 100/40. Will continue with POC as able. YAW Otriz/Ceci
[2018-11-06 16:00] VITALS: BP 103/43
--- NOTE | 2018-11-06 16:02 | NUR ---
OCCUPATIONAL THERAPY CO-SIGN I approve of the Occupational Therapy notes written above. DAVID GRIGGS OTR/Ceci
[2018-11-06 20:00] VITALS: BP 98/40
[2018-11-07] VITALS: BP 119/51
--- NOTE | 2018-11-07 04:51 | NUR ---
PATIENT IS SLEEPING WITH EASY AND REGULAR RESPERS ON ROOM AIR. CALL LIGHT IS WITHIN REACH AND BED IS ALARMED.
[2018-11-07 08:00] VITALS: BP 118/44
--- NOTE | 2018-11-07 08:40 | NUR ---
PHYSICAL THERAPY Patient seen this am 1:1 for therapy visit and was supine in bed with her daughter present upon therapist arrival. Patient voices no c/o's pain and transfers supine to stand with MIN A. Patient demonstrates increased Kyphotic posture and ambulates with use of wh walker, 15'x 1, 25'x 1, Min/CGA, completing toilet transfer with daughter assist between gait trials. Patient demonstrates very slow gissell, decreased stride and unsteady during all turns secondary to POOR walker safety / navigation. Patient returned to bedside chair and remained awaiting breakfast with call light, tray table, body alarm and telephone. Will continue per POC as tolerated, total treatment time 16 minutes. Bora Houston, DOCUMENTATION WRITER
[2018-11-07] MEDS ORDERED: Vitamin D PO (09:55)
[2018-11-07 12:00] VITALS: BP 100/50
--- NOTE | 2018-11-07 12:37 | NUR ---
Patient discharged to [facility], [place] information faxed. Notified facility patient will eat lunch here then family will transport between 1 - 1:30
--- NOTE | 2018-11-07 13:07 | NUR ---
PHYSICAL THERAPY CO-SIGN I approve of the Phyical Therapy notes written above. PAO WALDEN PT
--- NOTE | 2018-11-07 14:15 | NUR ---
[facility] Discharge instructions reviewed with patient/family. Patient receptive and verbalizes understanding. Follow-up care arranged. Written instructions given to patient/family. HERNÁN DIAZ
--- NOTE | 2018-11-07 14:19 | NUR ---
PT BEING DISCHARGED TO [facility] FOR INCURABLES. WILL CONTINUE TO FOLLOW.
== END 2018-11-07 14:15 | disposition other institution (70) | DRG 689 ==
LOC: ED 16:08 → EDHOLD 18:01 → 5E 18:01
PROVIDERS: Nurse Practitioner Family; Student in an Organized Health Care Education/Training Program; ADMIT Internal Medicine
DX: N39.0 Urinary tract infection, site not specified (principal); E43 Unspecified severe protein-calorie malnutrition; I50.32 Chronic diastolic (congestive) heart failure; E87.8 Other disorders of electrolyte and fluid balance, not elsewhere classified; R73.9 Hyperglycemia, unspecified; N06.9 Isolated proteinuria with unspecified morphologic lesion; H40.9 Unspecified glaucoma; N32.81 Overactive bladder; Z66 Do not resuscitate; Z51.5 Encounter for palliative care; N18.3 Chronic kidney disease, stage 3 (moderate); K57.90 Diverticulosis of intestine, part unspecified, without perforation or abscess without bleeding; M81.0 Age-related osteoporosis without current pathological fracture; Z91.041 Radiographic dye allergy status; Z88.8 Allergy status to other drugs, medicaments and biological substances; Z90.710 Acquired absence of both cervix and uterus; Z91.048 Other nonmedicinal substance allergy status; Z98.51 Tubal ligation status; Z80.0 Family history of malignant neoplasm of digestive organs; Z84.89 Family history of other specified conditions; Z68.22 Body mass index [BMI] 22.0-22.9, adult

== ENCOUNTER 2019-06-15 15:17 | Inpatient (IN) | payer MEDICARE, OTHER, MEDICAID ==
[2019-06-15] VITALS (19 sets, daily range): BP systolic 88–123; BP diastolic 40–72
[~2019-06-15] VITALS: Ht 144.7 cm; Wt 44.7 kg
[~2019-06-15 15:17] MED LIST changes: +CYPROHEPTADINE H4 M1 PO; +Vitamin D PO
[2019-06-15 16:49] LABS: MEAN CELL VOLUME 100.5 fl (81.0-99.0); MEAN CORPUSCULAR HGB CONC 31.9 g/dl (33.0-37.0); MEAN PLATELET VOLUME 10.6 fl (9.6-12.3); PLATELET COUNT AUTOMATED 158 10*3/uL (130-400); RED BLOOD COUNT 2.06 10*6/uL (4.10-5.10); RED CELL DISTRI WIDTH 13.1 % (0-14.5); WHITE BLOOD COUNT 8.5 10*3/uL (4.8-10.8)
[2019-06-15 16:53] LABS: HEMATOCRIT 20.7 % (37.0-47.0); HEMOGLOBIN 6.6 g/dl (12.0-16.0)
[2019-06-15 17:00] LABS: ACT PARTIAL THROMBO TIME 22.8 SECONDS (20.0-32.1); INTERNATIONAL NORM RATIO 1.1 (2.0-3.5)
[2019-06-15 17:04] LABS: ALBUMIN 2.3 gm/dl (3.1-4.5); ALKALINE PHOSPHATASE 48 U/L (45-117); BUN 39 mg/dl (7-24); CHLORIDE 110 mmol/L (98-107); CREATININE 0.84 mg/dL (0.55-1.02); LIPASE 64 U/L (73-393); POTASSIUM 3.9 mmol/L (3.5-5.1); SGOT/AST 19 IU/L (3-35); SGPT/ALT 13 U/L (12-78); SODIUM 142 mmol/L (136-145); TOTAL PROTEIN 5.7 gm/dL (6.4-8.2)
[2019-06-15 17:07] LABS: TROPONIN I < 0.015 ng/ml (<0.045)
[2019-06-15 17:15] LABS: BASOPHILS 1 % (0-1); TOTAL CELLS COUNTED 100 #CELLS
[2019-06-15 17:16] LABS: PLATELET SUFFICIENCY NORMAL (NORMAL)
[2019-06-15 17:38] LABS: BILIRUBIN NEGATIVE (NEGATIVE); BLOOD 2+ (NEGATIVE); CLARITY CLOUDY (CLEAR); COLOR YELLOW (YELLOW); GLUCOSE NEGATIVE (NEGATIVE); KETONE NEGATIVE (NEGATIVE); LEUKO ESTERASE 3+ (NEGATIVE); NITRITE POSITIVE (NEGATIVE); UROBILINOGEN 0.2 E.U./dl (0.2-1.0)
[2019-06-15 17:45] LABS: BACTERIA 4+; EPITHELIAL CELLS 21-30
[2019-06-15 17:46] LABS: RBC 16-20 rbc/hpf (0-2); WBC 51-100 wbc/hpf (0-5)
--- NOTE | 2019-06-15 20:05 | NUR ---
PT HAD MODERATE AMOUNT OF BLOODY STOOL.PT CLEANED AND RESTING IN BED.FAMILY AT BEDSIDE.
--- NOTE | 2019-06-15 20:44 | NUR ---
PATIENT IN BED FAMILY AT BEDSIDE AT THIS TIME. PATIENT BP 88/36 AT THIS TIME MANUAL DR BLISS MADE AWARE. PATIENT FAMILY INFORMED THAT SHE WILL BE ADMITTED HER TO THE HOSPITAL.
--- NOTE | 2019-06-15 21:20 | NUR ---
PATIENT HAS MODERATE AMOUNT OF JELLY LIKE BOWEL MOVEMENT AT THIS TIME. PATIENT IS STABLE AND TOLERATING BLOOD TRANSFUSION WELL.
--- NOTE | 2019-06-15 21:21 | NUR ---
PATIENT HAS BANDAGE TO THE LEFT BUTTOCK THAT WAS CHANGED TODAY AT [facility]. PATIENTS FAMILY REFUSES PHOTO TAKEN AT THIS TIME
--- NOTE | 2019-06-15 22:40 | NUR ---
PATIENTS BLOOD TRANSFUSION COMPLETE AT THIS TIME. PATIENT TOLERATED WELL. PATIENT STABLE AT THIS TIME.
--- NOTE | 2019-06-15 22:58 | NUR ---
PER NURSING CLEANING VALIDATION CONSULTANT PATIENT NOT TO BE TAKEN UPSTAIRS AT THIS TIME WILL CALL WHEN PATIENT CAN GO UP.
--- NOTE | 2019-06-15 23:30 | NUR ---
Time: A 88 year old FEMALE admitted to 5E under services of JUAN PEREZ DO, Pt. arrived via bed from ER. Chief complaint: POSSIBLE GI BLEED. BRANDEN LUCIA
--- NOTE | 2019-06-15 23:35 | NUR ---
PATIENTS TABITHA CONTINUES TO REFUSE THIS RN TO TAKE PICTURES OF WOUND. STATES THE WOUND WAS DRESSED YESTERDAY AT RETIREMENT.
[2019-06-15] MEDS ORDERED: NAMENDA10 MG PO (23:57)
[2019-06-15] MEDS ORDERED: REMERON15 M2 PO (23:58)
[2019-06-16 01:26] LABS: BASO % 0.4 % (0.0-1.0); EOS # 0.2 10*3/uL (0.0-0.4); EOS % 3.1 % (1.0-4.0); HEMOGLOBIN 7.9 g/dl (12.0-16.0); LYMPH # 1.2 10*3/uL (1.3-4.4); MEAN CORPUSCULAR HGB 31.6 pg (27.0-31.0); MEAN CORPUSCULAR HGB CONC 32.9 g/dl (33.0-37.0); MEAN PLATELET VOLUME 10.5 fl (9.6-12.3); MONO # 0.6 10*3/uL (0.1-1.0); NEUT # 4.8 10*3/uL (2.3-7.9); NEUT % 69.2 % (47.0-73.0); PLATELET COUNT AUTOMATED 125 10*3/uL (130-400); RED CELL DISTRI WIDTH 15.6 % (0-14.5); WHITE BLOOD COUNT 6.9 10*3/uL (4.8-10.8)
--- NOTE | 2019-06-16 01:34 | NUR ---
DR SHANKAR MADE AWARE OF REPEAT H+H RESULT. AWAITING ORDER REGARDING BLOOD.
--- NOTE | 2019-06-16 02:36 | NUR ---
DR SHANKAR STATES TO HOLD THE 2ND UNIT OF BLOOD UNTIL LATER ON SINCE REPEAT HGB WAS 7.9 WILL MONITOR PATIENT FOR SIGNS OF INCREASED BLEEDING
--- NOTE | 2019-06-16 05:28 | NUR ---
PATIENT HAS DISPLAYED NO S/S INCREASED BLEEDING SINCE HER ADMISSION, PATIENT HAS HAD NO EPISODES OF RECTAL BLEEDING OR BLOODY BOWEL MOVEMENTS. PATIENT HAS BEEN UP TO THE BEDSIDE COMMODE SEVERAL TIMES THROUGHOUT THE NIGHT, AND HAS NOT HAD TO MOVE BOWELS. RN WILL CONTINUE TO MONITOR
--- NOTE | 2019-06-16 06:23 | NUR ---
CALL OUT TO DR PITTMAN REGARDING CONSULT, NO ANSWER, MESSAGE LEFT TO CALL THE FLOOR REGARDING CONSULT INFORMATION.
[2019-06-16 06:25] LABS: BASO % 0.6 % (0.0-1.0); EOS # 0.3 10*3/uL (0.0-0.4); HEMATOCRIT 22.7 % (37.0-47.0); HEMOGLOBIN 7.5 g/dl (12.0-16.0); LYMPH # 1.2 10*3/uL (1.3-4.4); LYMPH % 19.2 % (27.0-41.0); MEAN CORPUSCULAR HGB 31.4 pg (27.0-31.0); MEAN PLATELET VOLUME 10.8 fl (9.6-12.3); MONO # 0.5 10*3/uL (0.1-1.0); MONO % 7.4 % (3.0-9.0); NEUT # 4.4 10*3/uL (2.3-7.9); NEUT % 68.5 % (47.0-73.0); PLATELET COUNT AUTOMATED 122 10*3/uL (130-400); RED BLOOD COUNT 2.39 10*6/uL (4.10-5.10); WHITE BLOOD COUNT 6.5 10*3/uL (4.8-10.8)
[2019-06-16 06:48] LABS: CHLORIDE 110 mmol/L (98-107); POTASSIUM 3.5 mmol/L (3.5-5.1); SODIUM 141 mmol/L (136-145)
--- NOTE | 2019-06-16 06:49 | NUR ---
JYOTISAVI Honeycutt [id number] Please refer to the physician's history and physical for past medical history, comorbid conditions, and allergies. Diagnosis: GI BLEED Robb Score: 12,HIGH RISK WOUND DESCRIPTIONS: Wound Number: 1 Location of the wound: left buttocks Type of wound: surgical Thickness: Partial Size: 0.4cm x 0.9cm x 0.8cm Tunneling: none Undermining: none Sinus Tract: none Presence of Exudate: Serosanguineous Amount: Light Color: Red Odor: None Periwound Skin Appearance: Normal Wound edges: approximated Pain (associated with wound): none at time of assessment How does patient state this happened? pts daughters stated that she had a cyst removed with Dr. aBker and has a follow up appointment on 06/24/19 at 10am. Wound Number: 2 Location of the wound: upper middle spine Thickness: Full Size: 0.4cm x 0.4cm x <0.1cm Tunneling: none Undermining: none Sinus Tract: none Presence of Exudate: none Amount: None Color: Brown, yellow Odor: None Periwound Skin Appearance: Erythema Wound edges: approximated Pain (associated with wound): none at time of assessment How does patient state this happened? pts daughters stated this is from her scratching herself Surface the patient is resting on: Isoflex SKIN PREVENTION RECOMMENDATION: 1. Pressure redistribution support surface as appropriate 2. Elevate heels 3. Remove boots/TEDS every shift and reapply 4. Head of bed 30 degrees as tolerated 5. Assess nutrition and hydration 6. Manage moisture 7. Avoid the use of containment devices while in bed 8. Use absorptive products on surfaces limit layers of linens on bed 9. Turn and reposition every 1-2 hours in bed and every 1 hour in chair as tolerated 10. Weight shifts every 15 minutes while up in chair 11. Offloading with pillows or device to keep heels elevated off bed 12. Monitor skin at least every shift 13. Inspect under medical devices twice a day WOUND TREATMENT RECOMMENDATIONS: Full thickness guidelines: Cleanse upper middle spine with nss and apply sureprep around the wound therahoney to wound bed and cover with optifoam gentle. Partial thickness guidelines: Cleanse left buttocks with nss and apply sureprep around the wound lightly pack with maxorb rope and cover with optifoam gentle daily and prn for soiling. Wheelchair cushion when oob.
[2019-06-16 06:50] LABS: CREATININE 0.63 mg/dL (0.55-1.02); PHOSPHOROUS 2.6 mg/dL (2.5-4.9)
[2019-06-16 06:55] LABS: BUN 27 mg/dl (7-24)
--- NOTE | 2019-06-16 07:03 | NUR ---
spoke with dr gabriel regarding consult
--- NOTE | 2019-06-16 07:36 | NUR ---
24 HR chart check completed.
[2019-06-16 08:00] VITALS: BP 107/53
--- NOTE | 2019-06-16 09:00 | NUR ---
DAUGHTERS IN ROOM, POC AND TX EXPLAINED, QUESTIONS ANSWERED.
--- NOTE | 2019-06-16 09:03 | NUR ---
Dr. Basurto notified of wound care recommendations.
--- NOTE | 2019-06-16 10:59 | NUR ---
PT IS FPC CARE AT [facility] AND PER FAMILY AT BEDSIDE PT WILL RETURN THERE WHEN MEDICALLY STABLE. WILL CONTINUE TO FOLLOW.
[2019-06-16 12:00] VITALS: BP 127/66
--- NOTE | 2019-06-16 12:00 | NUR ---
Patient resting quietly with no c/o discomfort. Respirations easy and regular. Vital signs stable. No overt distress. ASHLEY VILLA
[2019-06-16 16:00] VITALS: BP 134/60
--- NOTE | 2019-06-16 16:00 | NUR ---
FAMILY AND RN CURIOUS TO WHY CT HAS NOT CALLED TO START PREP, THEY STATE THEY NEVER RECEIVED THE ORDERED, RN REORDERED CT. DAUGHTERS WILL ENCOURGAE PT TO DRINK AT LEAST 1 BOTTLE OF PREP.
[2019-06-16 18:04] LABS: BASO % 0.4 % (0.0-1.0); EOS # 0.4 10*3/uL (0.0-0.4); EOS % 5.3 % (1.0-4.0); HEMOGLOBIN 8.8 g/dl (12.0-16.0); LYMPH # 1.7 10*3/uL (1.3-4.4); LYMPH % 21.2 % (27.0-41.0); MEAN CELL VOLUME 95.2 fl (81.0-99.0); MEAN CORPUSCULAR HGB 32.2 pg (27.0-31.0); MEAN CORPUSCULAR HGB CONC 33.8 g/dl (33.0-37.0); MEAN PLATELET VOLUME 10.1 fl (9.6-12.3); MONO # 0.6 10*3/uL (0.1-1.0); MONO % 7.5 % (3.0-9.0); NEUT # 5.3 10*3/uL (2.3-7.9); NEUT % 65.2 % (47.0-73.0); PLATELET COUNT AUTOMATED 115 10*3/uL (130-400); RED BLOOD COUNT 2.73 10*6/uL (4.10-5.10); RED CELL DISTRI WIDTH 15.6 % (0-14.5); WHITE BLOOD COUNT 8.1 10*3/uL (4.8-10.8)
--- NOTE | 2019-06-16 19:45 | NUR ---
Neurological: AAOX3: PLEASANT, COOPERATIVE, [place], FINE TREMOR Respiratory: ROOM AIR, DENIES DYSPNEA Breath sounds: DIMINISHED T/O Cough: NONE NOTED Cardiovascular: DENIES CP/PRESSURE, NO EDEMA, PPP, TEDS, SCDS Gastrointestinal: HYPERACTIVE X4 QUADS, DENIES N/V, JELLY LIKE BOWEL MOVEMENTS, SOFT/NONTENDER/NONDISTENDED Genito/Urinary: DENIES DYSURIA, BEDSIDE COMMODE Musculoskeketal: AMBULATORY W/ ASSIST, SEVERE KYPHOSIS PATIENT ASSISTED TO BEDSIDE COMMODE AND BACK TO BED. FAMILY AT BEDSIDE. NO S/S OF DISTRESS OR C/O NOTED AT THIS TIME. BED IS LOW, LOCKED, AND CALL LIGHT IS WITHIN REACH. WILL CONTINUE TO MONITOR, SEE SHIFT ASSESSMENT. NHUNG FREIRE A
[2019-06-16 20:00] VITALS: BP 110/63
--- NOTE | 2019-06-17 05:53 | NUR ---
FLEETS ENEMA DONE BY VÍCTOR FIGUEROA. SHE STATES NO FLECKS OF BM JUST CLOTS OF BLOOD NOTED WITH CLEAR WATER.
--- NOTE | 2019-06-17 05:57 | NUR ---
PT RAN CLEAR AFTER FLEETS ENEMA. PASSING CLOTS OF BLOOD, BUT STOOL IS WATERY WITH NO FLECKS.
[2019-06-17 06:44] LABS: BASO % 0.5 % (0.0-1.0); EOS # 0.4 10*3/uL (0.0-0.4); EOS % 5.9 % (1.0-4.0); HEMATOCRIT 24.7 % (37.0-47.0); HEMOGLOBIN 8.2 g/dl (12.0-16.0); LYMPH # 1.4 10*3/uL (1.3-4.4); LYMPH % 22.7 % (27.0-41.0); MEAN CELL VOLUME 95.4 fl (81.0-99.0); MEAN CORPUSCULAR HGB 31.7 pg (27.0-31.0); MEAN CORPUSCULAR HGB CONC 33.2 g/dl (33.0-37.0); MEAN PLATELET VOLUME 10.6 fl (9.6-12.3); MONO # 0.5 10*3/uL (0.1-1.0); MONO % 7.9 % (3.0-9.0); NEUT # 3.8 10*3/uL (2.3-7.9); NEUT % 62.7 % (47.0-73.0); PLATELET COUNT AUTOMATED 132 10*3/uL (130-400); RED BLOOD COUNT 2.59 10*6/uL (4.10-5.10); RED CELL DISTRI WIDTH 15.4 % (0-14.5); WHITE BLOOD COUNT 6.1 10*3/uL (4.8-10.8)
[2019-06-17 06:56] LABS: ALBUMIN 2.1 gm/dl (3.1-4.5); ALKALINE PHOSPHATASE 43 U/L (45-117); BUN 24 mg/dl (7-24); CHLORIDE 111 mmol/L (98-107); CREATININE 0.67 mg/dL (0.55-1.02); PHOSPHOROUS 2.4 mg/dL (2.5-4.9); POTASSIUM 3.7 mmol/L (3.5-5.1); SGOT/AST 18 IU/L (3-35); SGPT/ALT 13 U/L (12-78); SODIUM 142 mmol/L (136-145); TOTAL PROTEIN 5.2 gm/dL (6.4-8.2)
--- NOTE | 2019-06-17 07:33 | NUR ---
Nursing screen received and chart reviewed. 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 THank you. Arie Carlos OTR/l
--- NOTE | 2019-06-17 07:47 | NUR ---
PHYSICAL THERAPY Screen and Physical Therapy orders received will follow, thank you. Dinorah Harvey PT
--- NOTE | 2019-06-17 07:50 | NUR ---
PHYSICAL THERAPY Screen recieved pt from detention, please consult Physical Therapy as needed if pt has decline in functional status, thank you. Dinorah Harvey PT
[2019-06-17 08:00] VITALS: BP 121/73
--- NOTE | 2019-06-17 08:26 | NUR ---
24 HR chart check completed.
--- NOTE | 2019-06-17 08:48 | NUR ---
SPOKE WITH FAREED ABOUT URINE CULTURE SAID TO D/C ROCEPHIN ADD MERREM 1G/HRS, AND LET HIM KNOW ITS POSITIVE FOR ESBL
--- NOTE | 2019-06-17 08:55 | NUR ---
DR PITTMAN NOTIFIED OF CT RESULTS.
--- NOTE | 2019-06-17 08:56 | NUR ---
Dr. Basurto notified of wound care recommendations.
--- NOTE | 2019-06-17 11:00 | NUR ---
Occupational therapy orders received and chart reviewed. Per nursing, patient was at surgery. Will follow up with patient when available. Thank you for the referral. Mitra Bravo OTR/L
[2019-06-17 12:10] VITALS: BP 95/63
[2019-06-17 12:25] VITALS: BP 103/48
[2019-06-17 12:40] VITALS: BP 105/42
--- NOTE | 2019-06-17 13:13 | NUR ---
PT IS RESIDENTIAL CARE AT [facility] AND WILL RETURN WHEN MEDICALLY STABLE.
--- NOTE | 2019-06-17 13:19 | NUR ---
Occupational therapy orders received and chart reviewed. Patient was in surgery for a colo at this time. Will follow up with patient when available for OT evaluation. Thank you. Mitra Bravo, OTR/L
--- NOTE | 2019-06-17 13:56 | NUR ---
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 HOSPITALITY COORDINATOR faxed updates to Tay -TRELL Conteh
[2019-06-17 16:00] VITALS: BP 95/71
--- NOTE | 2019-06-17 17:22 | NUR ---
BUTTOCK WOUND DRESSING CHANGED AT THIS TIME
[2019-06-17 20:00] VITALS: BP 100/56
[2019-06-18 07:00] LABS: BASO % 0.7 % (0.0-1.0); EOS # 0.6 10*3/uL (0.0-0.4); EOS % 9.1 % (1.0-4.0); HEMATOCRIT 22.6 % (37.0-47.0); HEMOGLOBIN 7.4 g/dl (12.0-16.0); LYMPH # 1.4 10*3/uL (1.3-4.4); LYMPH % 22.8 % (27.0-41.0); MEAN CELL VOLUME 97.8 fl (81.0-99.0); MEAN CORPUSCULAR HGB CONC 32.7 g/dl (33.0-37.0); MEAN PLATELET VOLUME 10.4 fl (9.6-12.3); MONO # 0.5 10*3/uL (0.1-1.0); MONO % 8.1 % (3.0-9.0); NEUT # 3.6 10*3/uL (2.3-7.9); PLATELET COUNT AUTOMATED 137 10*3/uL (130-400); RED BLOOD COUNT 2.31 10*6/uL (4.10-5.10); RED CELL DISTRI WIDTH 15.2 % (0-14.5); WHITE BLOOD COUNT 6.1 10*3/uL (4.8-10.8)
[2019-06-18 08:00] VITALS: BP 136/65
--- NOTE | 2019-06-18 09:00 | NUR ---
Patient not available for Occupational Therapy as he is with the doctor. OTR will attempt at a later time. Adelina Carlos OTR/ina
--- NOTE | 2019-06-18 09:10 | NUR ---
PHYSICAL THERAPY Attempted to see pt for eval, however MD going in to room for morning assessment will follow later in the AM Dinorah Harvey PT
--- NOTE | 2019-06-18 10:45 | NUR ---
CASE MANAGEMENT TALKED WITH DAUGHTERS IN ROOM, INFORMED THEM THAT PT WILL BE OK TO RETURN TO [facility] WHEN MEDICALLY STABLE AND WILL NOT REQUIRE ISOLATION. THEY ASKED IF SHE WAS GOING BACK TODAY, TOLD THEM I THOUGHT THAT WAS THE PLAN. THEY ARE CONCERNED ABOUT BLOOD COUNT DROPPING AGAIN. TOLD THEM THAT THEY COULD DISCUSS THIS WITH DOCTORS WHEN THEY MAKE ROUNDS.
[2019-06-18] MEDS ORDERED: PROTONIX40 MG PO (12:37)
[2019-06-18] MEDS ORDERED: DOXYCYCLINE100 M3 PO (12:37)
--- NOTE | 2019-06-18 14:00 | NUR ---
ANALYZER SALES notified of patient discharge. ANALYZER SALES spoke with CAROLINA Franklin. ANALYZER SALES contacted [facility] who stated they could transport the patient between 3:30pm and 4pm today. ANALYZER SALES notified CAROLINA Franklin and [facility]. ANALYZER SALES spoke with daughter Josefina Zuleta and notified her as well. Will fax discharge instructions to [facility]. -TRELL Conteh
--- NOTE | 2019-06-18 14:00 | NUR ---
Occupational Therapy evaluation completed on 5 with full eval to follow. Recommend return to [facility] with on going OT for ADL, safety, transfers and stand tolerance. Patient is moderate complexity [id number]. Thank you for this referral. Adelina Carlos Otr/l
--- NOTE | 2019-06-18 14:25 | NUR ---
PT AND FAMILY AWARE WILL BE RETURNING TO [facility] TODAY. AWARE OF FOLLOW UP. PT DOES NOT WANT PICTURES TAKEN AT THIS TIME OF WOUNDS, WOUNDS WERE DRESSED YESTERDAY AND DOES NOT WANT REMOVED AT THIS TIME.
--- NOTE | 2019-06-18 14:54 | NUR ---
IV REMOVED. HOME GOING INSTRUCTIONS WITH FAMILY. NO QUETIONS AT THIS TIME
--- NOTE | 2019-06-18 15:01 | NUR ---
PHYSICAL THERAPY Ari completed moderate complexity level 527[address] recomend SNF at discharge PT to work on transfers, amb and strengthening Santhosh Harvey PT
--- NOTE | 2019-06-18 15:10 | NUR ---
DISCHARGED VIA AMBULANCE, [facility]
--- NOTE | 2019-06-18 15:10 | NUR ---
REPORT CALLED TO MIKE BRICEÑO
--- NOTE | 2019-06-18 15:37 | NUR ---
PT DISCHARGED VIA WHEELCHAIR
== END 2019-06-18 15:10 | DRG 871 ==
LOC: ED 15:17 → EDHOLD 21:04 → 5E 21:04
PROVIDERS: Emergency Medicine; Internal Medicine; Internal Medicine Gastroenterology; Student in an Organized Health Care Education/Training Program; ADMIT Internal Medicine
PROC: 30233N1 Transfusion of Nonautologous Red Blood Cells into Peripheral Vein, Percutaneous Approach (ICD-10-PCS; 2019-06-15)
PROC: 0DJD8ZZ Inspection of Lower Intestinal Tract, Via Natural or Artificial Opening Endoscopic (ICD-10-PCS; principal; 2019-06-17)
PROC: 0DJ08ZZ Inspection of Upper Intestinal Tract, Via Natural or Artificial Opening Endoscopic (ICD-10-PCS; principal; 2019-06-17)
DX: A41.9 Sepsis, unspecified organism (principal); E43 Unspecified severe protein-calorie malnutrition; K57.31 Diverticulosis of large intestine without perforation or abscess with bleeding; N39.0 Urinary tract infection, site not specified; E87.2 Acidosis; I50.32 Chronic diastolic (congestive) heart failure; R65.20 Severe sepsis without septic shock; R31.9 Hematuria, unspecified; M81.0 Age-related osteoporosis without current pathological fracture; D64.9 Anemia, unspecified; E86.1 Hypovolemia; N32.81 Overactive bladder; N18.3 Chronic kidney disease, stage 3 (moderate); K29.70 Gastritis, unspecified, without bleeding; Z66 Do not resuscitate; F03.90 Unspecified dementia, unspecified severity, without behavioral disturbance, psychotic disturbance, mood disturbance, and anxiety; Z51.5 Encounter for palliative care; K44.9 Diaphragmatic hernia without obstruction or gangrene; Z90.49 Acquired absence of other specified parts of digestive tract; Z98.51 Tubal ligation status; Z80.0 Family history of malignant neoplasm of digestive organs; Z91.041 Radiographic dye allergy status; Z91.048 Other nonmedicinal substance allergy status; Z79.82 Long term (current) use of aspirin; Z68.21 Body mass index [BMI] 21.0-21.9, adult